=== PATIENT | female | born 1950 | race Caucasian/White ===

== ENCOUNTER → 2017-02-21 | Outpatient (CLI) | payer MEDICARE, OTHER ==
[~2017-02-21] MED LIST: ESTR0.624 PO; IBUP200C62 PO; MIRA25TA PO; MULT-933 PO
[2017-02-21 16:40] LABS: BASOPHILS % (AUTO) 0.5 % (0-2); EOSINOPHILS # (AUTO) 0.1 T/MM3 (0-0.5); EOSINOPHILS % (AUTO) 2.6 % (0-4); HCT - HEMATOCRIT 39.8 % (36-46); HGB - HEMOGLOBIN 13.2 GM/DL (12-16); IMMATURE GRANULOCYTE # (AUTO) 0.01 T/MM3 (0.00-0.03); IMMATURE GRANULOCYTE % (AUTO) 0.2 % (0.0-0.5); LYMPHOCYTES # (AUTO) 1.9 T/MM3 (1-4.8); LYMPHOCYTES % (AUTO) 34.1 % (23-45); MEAN CORPUSCULAR HGB 26.5 UUG (26-34); MEAN CORPUSCULAR HGB CONC(MCHC 33.2 GM/DL (31-37); MEAN CORPUSCULAR VOLUME 79.8 UM3 (80-100); MEAN PLATELET VOLUME 9.5 UM3 (9.4-12.4); MONOCYTES # (AUTO) 0.3 T/MM3 (0-0.8); MONOCYTES % (AUTO) 4.9 % (0-9.0); NEUTROPHILS #(AUTO)-ABSOLUTE 3.2 T/MM3 (1.8-7.7); NEUTROPHILS % (AUTO) 57.7 % (33-66); RED BLOOD COUNT 4.99 M/MM3 (4.00-5.20); WBC - WHITE BLOOD COUNT 5.5 T/MM3 (4.5-11.0)
[2017-02-21 16:47] LABS: ALBUMIN 4.1 G/DL (3.5-5.0); ALBUMIN/GLOBULIN RATIO 1.3 RATIO (1.1-2.2); ALKALINE PHOSPHATASE 94 U/L (38-126); ALT (SGPT) 25 U/L (9-52); ANION GAP 12 MEQ/L (5-15); AST (SGOT) 22 U/L (14-36); BUN/CREATININE RATIO 24 RATIO (6-26); CALCIUM 9.3 MG/DL (8.4-10.2); CHLORIDE 108 MEQ/L (98-107); CO2 - CARBON DIOXIDE 27 MEQ/L (22-30); GLOMERULAR FILTRATION RATE 55; GLUCOSE 140 MG/DL (65-110); POTASSIUM 4.1 MEQ/L (3.6-5); SODIUM 147 MEQ/L (134-144); TOTAL PROTEIN 7.2 G/DL (6.3-8.2)
== END ==
LOC: LAB 16:21
PROVIDERS: ATTEND Nurse Practitioner Obstetrics & Gynecology
DX: M25.562 Pain in left knee (principal)
CPT/HCPCS: 36415; 80053; 85025

== ENCOUNTER 2017-02-28 05:44 | Inpatient (IN) | payer MEDICARE, OTHER ==
--- NOTE | 2017-01-09 10:21 | NUR ---
Schedule surgery for Lt TKA 02-28-17. Handouts of shower instructions with CHG soap, medications to stop one week before surgery, Surgical services pamphlet, and my contact information. Will update PMH, allergies, meds when she returns for a preop visit with Dr Horton.
--- NOTE | 2017-02-08 11:52 | NUR ---
PMH, allergies, meds reviewed and updated. Preop and DOS instructions reviewed verbally.
[~2017-02-28] VITALS: Ht 170.2 cm; Wt 110.6 kg
[2017-02-28] VITALS (25 sets, daily range): BP systolic 99–151; BP diastolic 50–94; PULSE 68–86; RESP 11–25; TEMP 95.2–98.9; O2SAT 91–99; Ht 170.2 cm; Wt 110.6 kg
--- OUTSIDE RECORDS SUMMARY | 2017-02-28 05:49 | XMS REPORT | Continuity of Care Document ---
Author Author [facility] Organization [facility] Address Unknown Phone Unavailable Support Name Relationship Address Phone CARSON RUFFIN DESIRE Caregiver [address] [place] [address] Unavailable MICKI ARREOLA MD Caregiver [address] [place] [address] Unavailable MICKI ARREOLA MD Caregiver [address] [place] [address] Unavailable SINA SALAZAR Next Of Kin [address] [place] [address] Insurance Providers Guarantor Lucia Salazar Address [address] [place] [address] Email [email or web address] Payer Other A Insurance Policy Number [id number] Subscriber's Name Lucia Salazar Relationship 18 Self Group Number [id number] Effective Date 15 Payer Medicare Policy Number [id number] Subscriber's Name Lucia Salazar Relationship 18 Self Advance Directives Directive Response Recorded Date/Time Ordered Resuscitation Status Full Code 09/16/16 3:45pm Resuscitation Documents on File No 09/20/16 11:50am DPOA for Healthcare Only Y Spouse 09/20/16 11:50am Living Will Yes 09/20/16 11:50am Problems Active Problems Medical Problem Onset Date Status Degenerative arthritis of right knee Unknown Chronic Medications Current Home Medications Medication Dose Units Route Directions Days Qty Instructions Start Date Acetaminophen (Tylenol) 325 Mg Tablet 650 Mg Oral Four Times Daily 100 Tablet 09/21/16 Aspirin (Aspirin Ec) 325 Mg Tablet. 325 Mg Oral Twice A Day 84 Tablet 09/21/16 Estrogens,Conjugated (Premarin) 0.625 Mg Tablet 1 Tab Oral Daily 09/09/16 Mirabegron (Myrbetriq) 25 Mg Tab.er.24h 25 Mg Oral Daily 09/09/16 Multivitamin (Multi-Day Vitamins) 1 Each Tablet 1 Tab Oral Daily 30 Tablet 09/09/16 Polyethylene Glycol 3350 (Healthylax) 17 Gm Powd.pack 17 Gm Oral Daily 30 Packet 09/21/16 Solifenacin Succinate (Vesicare) 5 Mg Tablet 10 Mg Oral Daily 05/21 Tramadol Hcl (Ultram) 50 Mg Tablet 50-100 Mg Oral Every 4 Hours as needed for Pain 60 Tablet 09/21/16 Social History Social History Problem Response Recorded Date/Time Onset Date Status Reason for Hospitalization Right TKA 09/21/2016 2:16pm Not Applicable Not Applicable Chewing Tobacco Status No 09/20/2016 6:25am Not Applicable Not Applicable Hx Substance Use No 09/20/2016 6:25am Not Applicable Not Applicable Hx Alcohol Use Y MONTHLY 09/20/2016 6:25am Not Applicable Not Applicable Has the pt used tobacco in the last 12 months No 09/20/2016 6:25am Not Applicable Not Applicable Query Response Start Date Stop Date Smoking Status Never smoker Hospital Discharge Instructions Instructions: Care Instructions: Reason for Hospitalization: Right TKA I was in the hospital because (patient own words): Knee surgery. Discharge Diet: Resume normal diet as tolerated Discharge Activity: Continue the exercises you were given in the hospital three times a day. Your therapist will provide you with a home therapy program prior to your hospital discharge. As you feel stronger, increase the number of repetitions you do in each session. Please check with us before you swim, use a whirlpool, drive or ride a bicycle. Follow Up Appointments: -[facility] ON 09-23-2016 AT 10:00AM FOR PHYSICAL THERAPY [place]. PHONE [phone] -FOLLOW UP WITH DR. ARREOLA IN HIS OFFICE ON 10/12/2016 AT 11:30. Pending Lab / Results: No Pending Lab Patient Instructions: Driving may be resumed once you are no longer taking narcotic medications and feel you can safely operate the vehicle. You may wish to practice in an empty parking lot at first. Keep in mind that your reaction time will be delayed for up to 6 weeks after surgery. Contact your surgeon for antibiotics to take before having dental work. Wound/Incision Care: In most cases, a Mepilex dressing will be placed at the time of surgery. This dressing will not need to be covered while showering. Leave dressing in place until your follow-up appointment as long as it remains clean, dry and stuck down well around the edges. Call your Doctor if you encounter a problem with your dressing. Please avoid submerging your incision until it is completely healed, once the Mepilex dressing is removed. This includes bathtubs, swimming pools, and hot tubs. DO NOT USE ALCOHOL, PEROXIDE, OR OINTMENTS of any kind on your incision. Pain Management/Treatment: Ice packs may be used, and will also help with the pain. You will be given a prescription for pain. Expected Signs/Symptoms: Some swelling around the incision, as well as in your feet and legs is normal. To help with this, elevate your feet on a footstool when sitting in a chair, and do the ankle pumps and circles whenever you are sitting still. Muscle action helps to move collected fluid out of the tissues and improve circulation. Ice packs may be used, and will also help with the pain. Report any persistent swelling, calf tenderness, increase in pain, or pain in the calf with warmth, or redness to your doctor. Notify Physician If: Report any complications to my office immmediately. This includes excessive bleeding, wound breakdown, redness around the wound, uncontrolled pain, or fever over 101 on 3 different measurements. Eat a balanced diet and get plenty of rest. During Business Hours:: If you have any questions or concerns, please call during regular office hours ([phone]). After Business Hours:: If you have any problems or need to reach a physician after hours or on the weekend please call the hospital's main number [phone] to have your physician paged. Condition at time of discharge: Good Plan of Care Discharge Date 09/21/16 3:40pm Disposition 01 DISCHARGED HOME, SELF-CARE Instructions/Education Provided [facility] Postop Instructions [facility] General Instructions Prescriptions See Medication Section Additional Instructions/Education FOLLOW UP WITH DR ARREOLA 10-12-16 @ 11:30AM [facility] ON 09-23-2016 AT 10:00AM FOR PHYSICAL THERAPY [place]. [phone] Care Plan and Goals See Discharge Instructions Section Functional Status Query Response Date Recorded Mobility Status Ambulatory September 21, 2016 2:16pm Assistive Devices Cane September 21, 2016 2:16pm Activity Limitations Weakness Pain September 21, 2016 2:16pm Feeding Ability Independent September 21, 2016 2:16pm Toileting Ability Independent September 21, 2016 2:16pm Grooming Ability Independent September 21, 2016 2:16pm Dressing Ability Independent September 21, 2016 2:16pm Driving Ability Independent September 21, 2016 2:16pm Housework Ability Independent September 21, 2016 2:16pm Meal Preparation Ability Independent September 21, 2016 2:16pm Stair Climbing Ability Assist September 21, 2016 2:16pm Ability to complete ADL's impeded by Impaired Mobility September 21, 2016 2:16pm Cognitive/Perceptual Impairments Impaired vision September 21, 2016 2:16pm Visual Assistive Devices Glasses September 20, 2016 11:42am Preferred Method of Learning Demonstration Hands on September 20, 2016 11:42am Allergies, Adverse Reactions, Alerts Allergen Type Severity Reaction Status Last Updated NKDA Allergy Unknown Active 09/20/16 CATS Allergy Unknown Active 09/12/16 Immunizations Immunization Event Date Type Not Given Reason Dose Number Lot Number Business Leader VIS Given Influenza, high dose seasonal 09/21/16 Administered 1 [id number] Sanofi Pasteur 06/24/14 Pneumococcal conjugate PCV 13 09/21/16 Administered 1 [id number] Instinct[employer] 09/10/15 Query Response on File Recorded Date/Time Hx Influenza Vaccination Y fall 201309/20/16 6:25am Hx Pneumococcal Vaccination No 09/20/16 6:25am Hx Influenza Vaccination Y fall 201309/20/16 6:25am Influenza Vaccine Hx fall 200909/21/16 2:36pm Vital Signs Acute Vital Signs Vital Response Date/Time Temperature (Fahrenheit) 98.0 deg F (96.8 - 99.1) 09/21/2016 12:09pm Temperature (Calculated Celsius) 36.92171 degrees C (36.0 - 37.3) 09/21/2016 12:09pm Temperature Source Temporal 09/21/2016 12:09pm Pulse Rate (adult) 78 bpm (60 - 100) 09/21/2016 12:09pm Respiratory Rate 16 breaths/min (10 - 20) 09/21/2016 12:09pm O2 Sat by Pulse Oximetry 97 % (90 - 100) 09/21/2016 12:09pm Oxygen Delivery Method Room Air 09/21/2016 12:09pm Oxygen Delivery Method Room Air 09/20/2016 1:46pm Fraction of Inspired Oxygen (FIO2) 21 % 09/21/2016 4:59am Blood Pressure 153/72 mm Hg 09/21/2016 12:09pm Blood Pressure Source Automatic Cuff 09/21/2016 12:09pm Height (Feet) 5 feet 09/20/2016 5:50am Height (Inches) 7.00 inches 09/20/2016 5:50am Weight (Kilograms) 11.600 kg 09/21/2016 10:03am Body Mass Index (BMI) 37.2 09/20/2016 5:50am Results Laboratory Results Test Name Result Units Flags Reference Collection Date/Time Result Date/ Time Comments White Blood Count 12.1 T/MM3 H 4.5-11.0 09/21/2016 4:35am 09/21/2016 5: 32am Red Blood Count 4.35 M/MM3 4.00-5.20 09/21/2016 4:35am 09/21/2016 5: 32am Hemoglobin 11.4 GM/DL L 12-16 09/21/2016 4:35am 09/21/2016 5:32am Hematocrit 35.8 % L 36-46 09/21/2016 4:35am 09/21/2016 5:32am Mean Corpuscular Volume 82.3 UM3 80-100 09/21/2016 4:35am 09/21/2016 5: 32am Mean Corpuscular Hemoglobin 26.2 UUG 26-34 09/21/2016 4:35am 2015 5:32am Mean Corpuscular Hemoglobin Concent 31.8 GM/DL 31-37 09/21/2016 4:35am 09/21/2016 5:32am RDW Standard Deviation 39.6 FL 36.9-50.2 09/21/2016 4:35am 09/21/2016 5 :32am Platelet Count 207 T/MM3 130-400 09/21/2016 4:35am 09/21/2016 5:32am Mean Platelet Volume 11.0 UM3 9.4-12.4 09/21/2016 4:35am 09/21/2016 5: 32am Icterus Index < 2 0-7 09/21/2016 4:35am 09/21/2016 5:38am Chemistry Specimen Hemolysis < 15 0-25 09/21/2016 4:35am 09/21/2016 5 :38am 0-25: Specimen Exhibited No Hemolysis. Turbidity < 20 0-20 09/21/2016 4:35am 09/21/2016 5:38am Sodium Level 139 MEQ/L 134-144 09/21/2016 4:35am 09/21/2016 5:38am Potassium Level 4.4 MEQ/L 3.6-5 09/21/2016 4:35am 09/21/2016 5:38am Chloride Level 106 MEQ/L 98-107 09/21/2016 4:35am 09/21/2016 5:38am Carbon Dioxide Level 23 MEQ/L 22-30 09/21/2016 4:35am 09/21/2016 5: 38am Anion Gap 10 MEQ/L 5-15 09/21/2016 4:35am 09/21/2016 5:38am Blood Urea Nitrogen 21.0 MG/DL H 7-17 09/21/2016 4:35am 09/21/2016 5: 38am Creatinine 0.8 MG/DL 0.7-1.2 09/21/2016 4:35am 09/21/2016 5:38am BUN/Creatinine Ratio 26 RATIO 6-26 09/21/2016 4:35am 09/21/2016 5:38am Glomerular Filtration Rate Calc 72 09/21/2016 4:35am 09/21/2016 5: 38am Glucose Level 125 MG/DL H 65-110 09/21/2016 4:35am 09/21/2016 5:38am Calculated Osmolality 272 MOSM/KG 261-280 09/21/2016 4:35am 09/21/2016 5:38am Calcium Level 9.1 MG/DL 8.4-10.2 09/21/2016 4:35am 09/21/2016 5:38am Glucometer 131 mg/dL H 65-110 09/20/2016 8:04pm 09/20/2016 8:19pm Neutrophils (%) (Auto) 59.6 % 33-66 09/14/2016 11:14am 09/14/2016 11: 20am Lymphocytes (%) (Auto) 30.1 % 23-45 09/14/2016 11:14am 09/14/2016 11: 20am Monocytes (%) (Auto) 6.8 % 0-9.0 09/14/2016 11:14am 09/14/2016 11:20am Eosinophils (%) (Auto) 2.6 % 0-4 09/14/2016 11:14am 09/14/2016 11:20am Basophils (%) (Auto) 0.7 % 0-2 09/14/2016 11:14am 09/14/2016 11:20am Immature Granulocyte % (Auto) 0.2 % 0.0-0.5 09/14/2016 11:14am 2015 11:20am Absolute Neutrophils (auto) 3.4 T/MM3 1.8-7.7 09/14/2016 11:14am 2015 11:20am Absolute Lymphocytes (auto) 1.7 T/MM3 1-4.8 09/14/2016 11:14am 2015 11:20am Absolute Monocytes (auto) 0.4 T/MM3 0-0.8 09/14/2016 11:14am 2015 11:20am Absolute Eosinophils (auto) 0.2 T/MM3 0-0.5 09/14/2016 11:14am 2015 11:20am Absolute Basophils (auto) 0.0 T/MM3 0-0.2 09/14/2016 11:14am 2015 11:20am Absolute Immature Granulocyte (auto 0.01 T/MM3 0.00-0.03 09/14/2016 11: 14am 09/14/2016 11:20am Total Bilirubin 0.50 MG/DL 0.20-1.30 09/14/2016 11:14am 09/14/2016 11: 30am Alkaline Phosphatase 86 U/L 38-126 09/14/2016 11:14am 09/14/2016 11: 30am Total Protein 7.4 G/DL 6.3-8.2 09/14/2016 11:14am 09/14/2016 11:30am Albumin 4.3 G/DL 3.5-5.0 09/14/2016 11:14am 09/14/2016 11:30am Globulin 3.1 G/DL 2.4-3.6 09/14/2016 11:14am 09/14/2016 11:30am Albumin/Globulin Ratio 1.4 RATIO 1.1-2.2 09/14/2016 11:14am 09/14/2016 11:30am Aspartate Amino Transf (AST/SGOT) 24 U/L 14-36 09/14/2016 11:14am 09/14 11:30am Alanine Aminotransferase (ALT/SGPT) 31 U/L 9-52 09/14/2016 11:14am 07/2016 11:30am Thyroid Stimulating Hormone (TSH) 1.86 MIU/L 0.47-4.68 09/14/2016 11: 14am 09/14/2016 12:00pm Hemoglobin A1c 5.1 % L 6.1-7.9 09/14/2016 11:14am 09/14/2016 11:33am < 6.0 NON-DIABETIC RANGE 6.1-7.9 [facility] TARGET RANGE >8.0 ACTION SUGGESTED Name: LUCIA SALAZAR Unit #: [id number] : 1950 Sex: F Admit Date: 09/20/16 Loc / Svc: SRG Discharge Date: DIAGNOSTIC IMAGING REPORT Report #: [id number] [facility] [place] Indication: ITS.REASON: POSTOP right knee replacement PROCEDURE: KNEE RIGHT 2 VIEW: Encounter: Initial Comparison: None Comparison: None Findings: Postoperative changes of right total knee replacement are seen. There is expected postoperative subcutaneous gas. No evidence of hardware failure or acute fracture. No retained radiopaque surgical instruments or sponges. Overlying material causing artifact. Impression: New right total knee prosthesis without evidence of immediate complication. . Procedures Procedure Status Date Provider(s) CHEST X-RAY 2VW FRONTAL&LATL Completed 08/03/16 ELECTROCARDIOGRAM TRACING Completed 08/03/16 CT THORAX W/O DYE Completed 08/05/16 ROUTINE VENIPUNCTURE Completed 09/14/16 COMPREHEN METABOLIC PANEL Completed 09/14/16 GLYCOSYLATED HEMOGLOBIN TEST Completed 09/14/16 ASSAY THYROID STIM HORMONE Completed 09/14/16 COMPLETE CBC W/AUTO DIFF WBC Completed 09/14/16 Total replacement of right knee joint Completed 09/20/16 MICKI ARREOLA MD Encounters Encounter Location Arrival/Admit Date Discharge/Depart Date Attending Provider Discharged Inpatient [facility] 09/20/16 5:33am 09/21/16 3:40pm MICKI ARREOLA MD Registered [facility] 09/14/16 10:54am MICKI ARREOLA MD Registered [facility] 08/05/16 12:36pm CARSON RUFFIN APRN Registered [facility] 08/03/16 11:11am CARSON RUFFIN APRN
[2017-02-28] MEDS ORDERED: MELOXICAM 15 MG TABLET PO ONE (06:00)
[2017-02-28] MEDS ORDERED: LIDOCAINE 1% (10mg/ml) 2ml SDV SQ ONE (06:00)
[2017-02-28] MEDS ORDERED: FAMOTIDINE 20mg IVPB 50 ML IV ONE (06:00)
[2017-02-28] MEDS ORDERED: TRANEXAMIC ACID 1,000 MG in NORMAL SALINE 100 ML IV ONE ×2 (06:00→07:00)
[2017-02-28] MEDS ORDERED: CEFAZOLIN 2 GM VIAL IV ONE (06:00)
[2017-02-28] MEDS ORDERED: METOCLOPRAMIDE 10mg/2ml INJECTION IV ONE (06:00)
[2017-02-28] MEDS ORDERED: ACET-2321 PO (06:14)
--- NOTE | 2017-02-28 06:35 | ANESPREOP ---
Anesthesia Record Date and Time DATE: 02/28/17 TIME: 06:32 Proposed Surgical Procedure LT TKA NPO since: 02/27/17 Allergies: Coded Allergies: NKDA (Verified Allergy, Unknown, 02/28/17) Uncoded Allergies: CATS (Allergy, Unknown, 09/12/16) Ht/Wt/BMI Height: 5 ' 7.00 " Weight: 104.700 kg BMI: 36.2 kg/m2 Vital Signs Date Time Temp Pulse Resp B/P Pulse Ox O2 Delivery O2 Flow Rate FiO2 02/28/17 05:58 98.6 75 14 131/74 95 Room Air Medications Inpatient Medications Current Medications Medications (Trade) Dose Ordered Sig/Fito Start Time Stop Time Status Last Admin Dose Admin Lactated Ringer's (Lactated Ringers) 1,000 ml @ 50 mls/hr Q20H 02/28/17 07:00 Acetaminophen (Tylenol) 325 Mg Tablet, 1-2 TAB PO QID, (Reported) Last Taken: on 02/27/172358 Estrogens,Conjugated (Premarin) 0.625 Mg Tablet , 1 TAB PO DAILY, (Reported) Last Taken: on 02/28/17 0515 Ibuprofen (Ibuprofen) 200 Mg Capsule, 2-3 CAP PO Q4H PRN for PAIN, (Reported) Last Taken: on Unknown Date & Time Mirabegron (Myrbetriq) 25 Mg Tab.er.24h , 25 MG PO DAILY, (Reported) Last Taken: on 02/28/17 0515 Multivitamin (Multi-Day Vitamins) 1 Each Tablet , 1 TAB PO DAILY, (Reported) Last Taken: on Unknown Date & Time Currently on Beta Gene: No Medical/Surgical History Anesthesia PMH: Reports: *Diabetes (PER H&P- PT DENIES), Anesthesia Reactions ( NO KNOWN AIRWAY ISSUES; NAUSEA;DROP IN BP WITH A CECILE BLOCK), Arthritis (OA), Hyperlipidemia (Not on medication per pt), Obesity Smoking Status: Never smoker Use Chewing Tobacco?: No Second Hand Exposure: No Substance Use Type: does not use Alcohol Intake: none HX of Last Menstrual Period: HYST Past Surgical History Orthopedic Surgeries: Yes - LT GANGLION CYST; RT TKA Abdominal Surgeries: Genitourinary Surgeries: Cardiac Surgeries: Endocrine Surgeries: Reproductive Surgeries: Yes - ,1975,1977,1980; LAVH/BSO; LT BREAST BX Neurological Surgeries: Ear Surgeries: Nose Surgeries: Throat Surgeries: Yes - T&A Other Surgeries: Yes - [place] EYE SURGERY;Dental surgery;colonoscopy Anesthesia Adverse Reactions: FOUND none Family Hx of Anesthesia Advers: none Hx of Motion Sickness: No Pertinent Findings EKG Rhythm: Sinus Rhythm Physical Exam Respiratory: Bilat breath sounds equal, Lungs clear Cardiovascular: FOUND Regular rate, rhythm Airway Assessment Mallampati Score: I TMD: 3 Fingerbreadths Neck Extension: Good Overall Assessment: No Airway Concerns ASA: 2 Plan Regional: Spinal Discussion Discussed risks/options/alternatives of anesthesia and questions answered. Patient consents. Nursing pain assessment noted. Attestation Statement Prior to the delivery of any anesthetic medication, I examined the patient, developed the plan, obtained the patient's consent and discussed the risk and benefits of the procedure with the patient/guardian. MINDI RAZO Feb 28, 2017 06:35
[2017-02-28] MEDS ORDERED: MIDAZOLAM 2mg/2ml INJECTION ONE (06:46)
[2017-02-28] MEDS ORDERED: PROPOFOL 500mg 50 ML IV ONE (06:47)
[2017-02-28] MEDS ORDERED: ROPIVACAINE 0.5% (5mg/ml) 30ml INJ ONE (06:51)
[2017-02-28] MEDS ORDERED: ACETAMINOPHEN 500 MG TABLET PO ONE (07:00)
[2017-02-28] MEDS ORDERED: LR 1,000 ML IV SCH (07:00)
[2017-02-28] MEDS ORDERED: DEXAMETHASONE 4mg/ml - 1ml INJECTION IV ONE (07:00)
[2017-02-28] MEDS ORDERED: ONDANSETRON 4mg/2ml INJECTION IV ONE (07:00)
[2017-02-28] MEDS ORDERED: NOZIN NASAL SWAB NS ONE ×2 (07:00→09:30)
[2017-02-28] MEDS ORDERED: VANCOMYCIN 1 GRAM INJECTION ONE (07:07)
[2017-02-28] MEDS ORDERED: KETAMINE 500mg/10ml INJECTION ONE (07:26)
[2017-02-28] MEDS ORDERED: GLYCOPYRROLATE 0.4mg/2ml INJECTION ONE (07:31)
[2017-02-28] MEDS ORDERED: LIDOCAINE 2% (20mg/ml) 5ml PF SDV ONE (07:38)
[2017-02-28] MEDS ORDERED: EPINEPHRINE 0.25 MG, BUPIVACAINE 0.25% 75 MG, MORPHINE SULFATE 15 MG in NORMAL SALINE 3... INJ ONE (08:00)
[2017-02-28] MEDS ORDERED: SALINE FLUSH 10ml SYRINGE ONE ×2 (08:03→08:15)
[2017-02-28] MEDS ORDERED: PHENYLEPHRINE 10mg/ml INJECTION ONE (08:03)
--- NOTE | 2017-02-28 08:54 | PDOPERATE ---
Operative Report Date of Operation 02/28/17 Side: Left Preoperative Diagnosis: knee primary DJD Postoperative Diagnosis Same as preoperative diagnosis. Operation/Procedure: total knee arthroplasty (left) Surgeon Jayson Horton MD Donor Relations Associate JESSICA Berkowitz Complications None. Regional Block: Spinal Estimated Blood Loss See Anesthesia Record. Fluids Please See Anesthesia Record. Description of Operation Ms. Salazar and her left knee were identified and marked in the the preoperative holding area. She was then brought back to the operating suite and proper anesthesia was administered. She was then positioned supine on the operating table. The left lower extremity was then prepped and draped in my normal sterile fashion. Timeout was performed with all operating room personnel. The leg was exsanguinated and tourniquet inflated 250 mmHg. A standard anterior incision followed by a medial parapatellar approach was utilized. The vast majority of her arthritis was in the medial compartment. A distal femoral cut was made in 5 of valgus using intramedullary guide. The femur was sized at a 4 and rotation set using the epicondylar axis. Distal femoral cuts were performed. A proximal tibial cut was made using extramedullary guide. The tourniquet was let down. Remaining osteophytes and meniscus were removed. Gaps were checked and they were well balanced and rectangular but tight so another 2 mm was taken off the tibial cut. Trial components were placed with a 9 mm spacer. This allowed for full range of motion and the patella tracked well. The knee was stable throughout range of motion. The patella was resurfaced with the knee in extension to a size 32. The tibia rotation was then marked and the tibia stamped at the proper rotation at a size 4. The bone was prepared for cementing and all components cemented into place and allowed to cure in extension. Betadine solution was used for 3 minutes during the curing period and then fully irrigated out with 1 L of normal saline. The tourniquet was deflated and hemostasis obtained with electrocautery. After the cement had cured the knee was taken through range of motion check for balance and stability which were good. Vancomycin powder was placed into the wound. The arthrotomy was closed with #1 Vicryl. The remainder of the wound was then closed by my drilling assistant utilizing 2-0 vycral in the subcutaneous tissue. 4-0 monocryl was used in the subcuticular layer followed by dermabond and a sterile dressing. After closure the patient will be transferred to the recovery room under the care of anesthesia. MICKI HORTON MD Feb 28, 2017 08:54
[2017-02-28] MEDS ORDERED: PRN ORDERS MC (09:30)
[2017-02-28] MEDS ORDERED: IBUPROFEN 200 MG TABLET PO PRN (09:30)
[2017-02-28] MEDS ORDERED: DiphenhydrAMINE 50 MG/ML INJECTION IV PRN (09:30)
[2017-02-28] MEDS ORDERED: ONDANSETRON 4mg/2ml INJECTION IV PRN ×2 (09:30→10:00)
[2017-02-28] MEDS ORDERED: SENNOSIDES 8.6 MG TABLET PO PRN (09:30)
[2017-02-28] MEDS ORDERED: METOCLOPRAMIDE 10mg/2ml INJECTION IV PRN (09:30)
[2017-02-28] MEDS ORDERED: LORAZEPAM 1 MG TABLET PO PRN (09:30)
[2017-02-28] MEDS ORDERED: DiphenhydrAMINE 25 MG CAPSULE PO PRN (09:30)
--- NOTE | 2017-02-28 09:47 | ANESPD ---
Peripheral Nerve Blockade Physician: Dago Horton MD Date: 02/28/17 Surgical Procedure: Left adductor canal block Discussion Discussed risks/options/alternatives of anesthesia and questions answered. Patient consents. Nursing pain assessment noted. Block Start: 09:31 Block Stop: 09:35 Block Employed: Adductor Canal Indication: post-operative pain Approach: left side confirmed Position: supine Patient: Consent, risks/benefits discussed, Informed, post block act. discussed Monitors: EKG, SpO2, NIBP IV Sedation: No Initial Vital Signs First Documented Vital Signs Date Time Temp Pulse Resp B/P Pulse Ox O2 Delivery O2 Flow Rate FiO2 02/28/17 05:58 98.6 75 14 131/74 95 Room Air Post Vital Signs Vital Signs Date Time Temp Pulse Resp B/P Pulse Ox O2 Delivery O2 Flow Rate FiO2 02/28/17 05:58 98.6 75 14 131/74 95 Room Air Initial Pain Score: 0 Prep: chlorhexadine/ETOH Ultrasound Used?: Yes (see ultrasound image in EMR) Nerve Simulator Parathesia/Pain: none Injectate Ropivacaine (%): .5 Ropivacaine (mL): 15 Was Epi 1:200,000 Used?: No Injection Injection made incrementally with constant monitoring and aspiration every 5 ml. MINDI RAZO Feb 28, 2017 09:47
[2017-02-28] MEDS ORDERED: HYDROMORPHONE 2mg/ml INJECTION IV PRN (10:00)
--- NOTE | 2017-02-28 10:05 | NUR ---
POST-OP patient returns to bed per room. Transferred to bed with slide board and assist of three. VS are stable. is at bedside. Denies pain. Reports that her lower body is "numb." Denies nausea.
--- NOTE | 2017-02-28 10:36 | DI ---
Indication: ITS.REASON: POSTOP left knee replacement PROCEDURE: KNEE LEFT 2 VIEW: Encounter: Initial Comparison: None Findings: Postoperative changes of left total knee replacement are seen. There is expected postoperative subcutaneous gas. No evidence of hardware failure or acute fracture. No retained radiopaque surgical instruments or sponges. Overlying material causing artifact. Impression: New left total knee prosthesis without evidence of immediate complication. .
[2017-02-28] MEDS: NORMAL SALINE 1,000 ML IV SCH ×2 (10:39→22:33)
[2017-02-28] MEDS: OXYCODONE I.R. 5 MG TABLET PO PRN ×3 (11:57→23:51)
--- NOTE | 2017-02-28 12:35 | ANESPO ---
Post-Op Note Date 02/28/17 Time: 12:35 Status Pt Participated in Evaluation: Pt participated in person Vital Signs Date Time Temp Pulse Resp B/P Pulse Ox O2 Delivery O2 Flow Rate FiO2 02/28/17 12:23 95.2 81 16 129/94 97 Room Air 02/28/17 09:55 1.00 Respiratory Function: Airway patent, Regular respirations Cardiovascular Function: Regular pulse Mental Status: Alert/oriented Pain Level Intensity: 0 Hydration: Taking po fluids Complications during Recovery None apparent Follow-Up Instructions Instructions Per Surgeon KENNETH CADET CRNA Feb 28, 2017 12:35
[2017-02-28] MEDS: ACETAMINOPHEN 325 MG TABLET PO SCH ×4 (16:31→22:33)
[2017-02-28] MEDS: CEFAZOLIN 2 G in NORMAL SALINE 100 ML IV SCH ×2 (16:31→22:39)
[2017-02-28] MEDS: NOZIN NASAL SWAB NS SCH ×2 (16:31→22:39)
--- NOTE | 2017-02-28 18:34 | NUR ---
STATUS Patient has ambulated in hallway with PT and tolerated well. Polar Pack remains to left knee. Oxicodone given x 2 for complaints of pain. VS have been stable. Patient has been incontinent of urine x 2 this shift.
[2017-02-28] MEDS: ASPIRIN *EC* 325mg TABLET PO SCH (20:33)
[2017-02-28] MEDS ORDERED: SENNOSIDES 8.6 MG TABLET PO SCH (22:00)
--- NOTE | 2017-03-01 05:58 | NUR ---
Status Up to BR with SBA, polar pack to left knee, SCD's in place. No c/o pain this morning, awake and reading in bed.
[2017-03-01 06:01] LABS: HCT - HEMATOCRIT 35.6 % (36-46); HGB - HEMOGLOBIN 11.4 GM/DL (12-16); MEAN CORPUSCULAR HGB 25.9 UUG (26-34); MEAN CORPUSCULAR VOLUME 80.7 UM3 (80-100); MEAN PLATELET VOLUME 10.4 UM3 (9.4-12.4); RED BLOOD COUNT 4.41 M/MM3 (4.00-5.20); WBC - WHITE BLOOD COUNT 10.2 T/MM3 (4.5-11.0)
[2017-03-01 06:09] LABS: ANION GAP 12 MEQ/L (5-15); BUN/CREATININE RATIO 26 RATIO (6-26); CALCIUM 8.9 MG/DL (8.4-10.2); CHLORIDE 106 MEQ/L (98-107); CO2 - CARBON DIOXIDE 23 MEQ/L (22-30); CREATININE 0.9 MG/DL (0.7-1.2); GLOMERULAR FILTRATION RATE 63; GLUCOSE 118 MG/DL (65-110); POTASSIUM 4.4 MEQ/L (3.6-5); SODIUM 141 MEQ/L (134-144)
[2017-03-01] MEDS: NOZIN NASAL SWAB NS SCH ×2 (06:18→13:38)
[2017-03-01] MEDS: OXYCODONE I.R. 5 MG TABLET PO PRN ×2 (06:18→13:38)
--- NOTE | 2017-03-01 08:25 | PDORTHOPN ---
Subjective Date DATE: 03/01/17 TIME: 08:20 Subjective Lucia slept well until about 4AM and then couldn't get back to sleep for multiple reasons. Denies CP, cough or SOA. No nausea. She has vu up with good tolerance. No specific complaints at this time. Objective Vital Signs Vital signs Vital Signs 02/28/17 02/28/17 02/28/17 20:30 21:32 23:20 Temp 96.0 98.9 97.6 Pulse 86 85 82 Resp 16 16 18 B/P 151/70 144/71 132/73 Pulse Ox 96 97 95 O2 Delivery Room Air Room Air Room Air Height (Feet): 5 Height (Inches): 7.00 Weight (Kilograms): 106.800 General General Appearance: No Acute Distress Respiratory (Brief) Respiratory Brief: FOUND: non-labored Cardiovascular (Brief) Cardiac: FOUND: calf easily compressible, calf soft, nontender, pedal pulses intact Surgical Site Incision: FOUND: Mepilex dressing intact, no drainage Neurologic (Brief) Neurological Brief: FOUND: extremities w/o deficits, neuro intact Psychiatric (Brief) Psychiatric Brief: FOUND: alert, no acute distress Laboratory Laboratory Laboratory Tests 03/01/17 04:41 Laboratory Tests 03/01/17 04:41 Assessment & Plan Problems: (1) Degenerative arthritis of left knee Status: Chronic Qualifiers: Osteoarthritis type: primary Qualified Codes: M17.12 - Unilateral primary osteoarthritis, left knee Assessment & Plan: Aspirin protocol for VTE prophylaxis. Early mobilization and SCD's for added DVT coverage. PT/OT services to improve independent function. Discharge Planning per Case Management. Expect discharge later today. Hospital Course Summary Disclaimer The visit summary below is not to be considered part of the above Progress Note. NORI TOMLIN Mar 01, 2017 08:23
[2017-03-01] MEDS ORDERED: ASPI-917 PO (08:30)
[2017-03-01] MEDS ORDERED: POLY17PO6 PO (08:30)
[2017-03-01] MEDS ORDERED: OXYC5CAP3 PO (08:30)
--- NOTE | 2017-03-01 08:32 | NUR ---
CM CM IN TO VISIT WITH PT. SHE IS ALERT AND ORIENTED. SHE PLANS TO DC HOME. SHE HAS FWW AND CANE. SHE PLANS TO DC OUTPT PT AT [facility]. SHE IS GIVEN CM CONTACT INFORMATION. JAIRE SCORE IS 6. Addendum: 03/01/17 at 0833 by NILSA GALARZA RN Amended: Links added.
[2017-03-01] MEDS ORDERED: POLYETHYL.GLYCOL 3350 PACKET 17gm PO SCH (09:00)
[2017-03-01] MEDS ORDERED: MIRABEGRON 25 MG TABLET PO SCH (09:00)
[2017-03-01] MEDS ORDERED: DOCUSATE SODIUM 100 MG CAPSULE PO SCH (09:00)
[2017-03-01 09:43] VITALS: BP 135/63; PULSE 83; RESP 18; TEMP 96.7; O2SAT 96
[2017-03-01 09:52] VITALS: PULSE 83; RESP 18
[2017-03-01] MEDS: ASPIRIN *EC* 325mg TABLET PO SCH (10:00)
[2017-03-01] MEDS: NORMAL SALINE 1,000 ML IV SCH (10:18)
[2017-03-01 12:27] VITALS: BP 128/67; PULSE 85; RESP 18; TEMP 96.7; O2SAT 100
[2017-03-01] MEDS: ACETAMINOPHEN 325 MG TABLET PO SCH (13:38)
--- NOTE | 2017-03-01 14:28 | DSPDOC ---
General Date Date DATE: 03/01/17 TIME: 14:26 Attending Physician Dago Horton MD Admitting Physician Dago Horton MD Consulting Physician Admitting Diagnosis PRIMARY DEGENERATIVE JOINT DISEASE LEFT KNEE Discharge Diagnosis primary DJD left knee Procedures Left total knee arthroplasty Diagnosis Left knee primary DJD History of Present Illness HPI Elements This patient was admitted for elective surgical tx of end stage degenerative joint disease that failed to respond to conservative treatment. Further details of this is found in the admission H&P. Hospital Course After appropriate preoperative clearance and signing of operative consent, the patient was given IV antibiotics, according to orthopedic protocol. The patient was taken to the operating room and underwent elective joint arthroplasty. Following surgery, antibiotics were discontinued less than 24 hours according to joint protocol. Appropriate anticoagulants were initiated and SCDs added for DVT prevention. The dressing was clean, dry, and intact. Pain control was obtained via multimodal approach. Bowel motivation addressed with scheduled and PRN medications. Early mobilization was initiated through PT services. Discharge arrangements made by a collaborative effort between the patient and Case Management. Follow-up is scheduled in 2-3 weeks. Discharge instructions given by orthopedic providers and nursing staff at discharge. Discharge condition was good. Problems: (1) Degenerative arthritis of left knee Status: Chronic Assessment & Plan: Aspirin protocol for VTE prophylaxis. Early mobilization and SCD's for added DVT coverage. PT/OT services to improve independent function. Discharge Planning per Case Management. Expect discharge later today. Associated Postoperative Event: Acute P.O. Anemia Ongoing Care Required?: No Acute P.O. Anemia: Patient received IVF, Labs monitored daily, No intervention required, HGB drop-acceptable range Laboratory Laboratory Tests Test 03/01/17 04:41 White Blood Count 10.2T/MM3 Red Blood Count 4.41M/MM3 Hemoglobin 11.4GM/DL Hematocrit 35.6% Mean Corpuscular Volume 80.7UM3 Mean Corpuscular Hemoglobin 25.9UUG Mean Corpuscular Hemoglobin Concent 32.0GM/DL RDW Standard Deviation 41.8FL Platelet Count 243T/MM3 Mean Platelet Volume 10.4UM3 Turbidity < 20 Sodium Level 141MEQ/L Potassium Level 4.4MEQ/L Chloride Level 106MEQ/L Carbon Dioxide Level 23MEQ/L Anion Gap 12MEQ/L Blood Urea Nitrogen 23.0MG/DL Creatinine 0.9MG/DL Glomerular Filtration Rate Calc 63 BUN/Creatinine Ratio 26RATIO Glucose Level 118MG/DL Calculated Osmolality 276MOSM/KG Calcium Level 8.9MG/DL Icterus Index < 2 Chemistry Specimen Hemolysis < 15 Home Meds Active Scripts Oxycodone HCl (Oxycodone HCl) 5 Mg Capsule, 1-2 TAB PO Q3H Y for PAIN, #60 TAB Prov:NORI TOMLIN 03/01/17 Polyethylene Glycol 3350 (Miralax) 17 Gm Powd.pack, 17 G PO DAILY Y for CONSTIPATION, #1 BOTTLE Take 17 Grams (1 capful), by mouth, once a day. Prov:NORI TOMLIN 03/01/17 Aspirin *EC* (Aspirin EC) 325 Mg Tablet., 325 MG PO BID, #84 TAB Take this medication twice a day for 6 weeks for blood clot prevention. Prov:NORI TOMLIN 03/01/17 Reported Medications Acetaminophen (Tylenol) 325 Mg Tablet, 1-2 TAB PO QID, #60 TAB 2 Refills 02/28/17 Ibuprofen (Ibuprofen) 200 Mg Capsule, 2-3 CAP PO Q4H Y for PAIN, CAP 02/08/17 Multivitamin (Multi-Day Vitamins) 1 Each Tablet, 1 TAB PO DAILY, TAB 09/09/16 Mirabegron (Myrbetriq) 25 Mg Tab.er.24h, 25 MG PO DAILY, TAB 09/09/16 Estrogens,Conjugated (Premarin) 0.625 Mg Tablet, 1 TAB PO DAILY, TAB 09/09/16 Discharge Disposition Please refer to Case Management Notes for patient's disposition. Estimated Blood Loss 50.0 HOSEA METCALF Mar 01, 2017 14:28
--- NOTE | 2017-03-01 15:03 | NUR ---
DISCHARGE PATIENT IS ALERT AND ORIENTED X3. PATIENT VITALS ARE STABLE AND PATIENT IS ON ROOM AIR. PATIENT DENIES CP, NAUSEA, AND SOA. PATIENT DISCHARGE INSTRUCTIONS INCLUDE: NEW MEDICATIONS, CONTINUED MEDICATIONS, FOLLOW UP APPOINTMENTS, REASONS TO CALL DOCTOR AND OR SEEK IMMEDIATE CARE, SIGNS AND SYMPTOMS OF INFECTION, INCISION/DRESSING CARE, ACTIVITY/BATHING, AND DIET. SCRIPT FOR ROXICODONE GIVEN TO PATIENT. PATIENT ID BAND REMOVED AND PERSONAL BELONGINGS RETURNED. PATIENT DECLINED TO TAKE POLAR PACK HOME STATING "IT HUMS AND ALARMS." PATIENT ALSO STATED SHE HAS A POLAR PACK AT HOME FROM A PREVIOUS STAY THAT SHE WILL USE. PATIENT LEFT VIA WHEELCHAIR AND NURSING STAFF FROM ER ENTRANCE. PATIENT TRANSPORTED HOME FOR SELF CARE BY .
[2017-03-02] MEDS ORDERED: MILK OF MAGNESIA 30 ML SUSP PO SCH (08:00)
[2017-03-02] MEDS ORDERED: BISACODYL 10 MG SUPPOSITORY RECTALLY SCH (20:00)
== END 2017-03-01 15:03 | disposition home or self-care (01) | DRG 470 ==
LOC: SRG 05:44
PROVIDERS: ADMIT Orthopaedic Surgery; ATTEND Orthopaedic Surgery
PROC: 0SRD0J9 Replacement of Left Knee Joint with Synthetic Substitute, Cemented, Open Approach (ICD-10-PCS; principal; 2017-02-28 07:38)
DX: M17.12 Unilateral primary osteoarthritis, left knee (principal); Z96.651 Presence of right artificial knee joint; D64.9 Anemia, unspecified; E78.2 Mixed hyperlipidemia; E11.9 Type 2 diabetes mellitus without complications
CPT/HCPCS: 36415; 80048; 85027